=== PATIENT | female | born 1975 | race Caucasian/White ===

== ENCOUNTER 2022-11-15 10:34 | Outpatient (CLI) | payer OTHER, SELFPAY | END 2022-11-15 10:35 | disposition home or self-care (01) | PROVIDERS: Visit Provider Obstetrics & Gynecology | DX: N39.0 Urinary tract infection, site not specified (principal); B37.31 Acute candidiasis of vulva and vagina | CPT/HCPCS: 87086; 87186 ==

== ENCOUNTER 2022-11-20 15:46 | Outpatient (CLI) | payer OTHER, SELFPAY | END 2022-11-20 15:47 | disposition home or self-care (01) | LOC: NFLDREF 11-29 08:33 | PROVIDERS: PCP Obstetrics & Gynecology; Visit Provider Obstetrics & Gynecology | DX: N39.0 Urinary tract infection, site not specified (principal) | CPT/HCPCS: 87086 ==

== ENCOUNTER 2023-06-13 13:33 | Outpatient (CLI) | payer OTHER, SELFPAY | END 2023-06-13 13:34 | disposition home or self-care (01) | PROVIDERS: Visit Provider Obstetrics & Gynecology | DX: Z13.1 Encounter for screening for diabetes mellitus (principal); Z13.220 Encounter for screening for lipoid disorders; R53.83 Other fatigue | CPT/HCPCS: 80061; 84439; 84443 ==

== ENCOUNTER 2023-09-01 08:58 | Outpatient (CLI) | payer OTHER, SELFPAY | END 2023-09-01 08:59 | disposition home or self-care (01) | LOC: NFLDREF 09-03 15:32 | PROVIDERS: Visit Provider Obstetrics & Gynecology | DX: D64.9 Anemia, unspecified (principal) | CPT/HCPCS: 82607; 82728; 82746; 84443 ==

== ENCOUNTER 2023-09-09 15:30 | Outpatient (CLI) | payer OTHER, SELFPAY ==
--- NOTE | 2023-09-09 15:40 | CRLHL7_ITS ---
For Patients: As a result of the Century Cures Act, medical imaging exams and procedure reports are released immediately into your electronic medical record. You may view this report before your referring provider. If you have questions, please contact your health care provider. BILATERAL DIGITAL SCREENING MAMMOGRAM WITH COMPUTER-AIDED DETECTION AND TOMOSYNTHESIS CLINICAL HISTORY: Routine screening exam. COMPARISON: 10/13/2017. TECHNIQUE: Digital mammogram in CC and MLO projections including computer-aided detection (CAD). Tomosynthesis was used in this interpretation. BREAST COMPOSITION: There are areas of scattered fibroglandular density. FINDINGS: RIGHT Breast: No suspicious findings. LEFT Breast: Focal asymmetric density upper outer quadrant 5 cm from the nipple. IMPRESSION: LEFT breast asymmetry/mass. RECOMMENDATIONS: Additional mammographic views of the LEFT breast including 3D spot compression CC/MLO. LEFT breast ultrasound may also be required. BI-RADS Category 0: Incomplete: Need Additional Imaging Evaluation and/or Prior Mammograms for Comparison The [facility] will contact the patient for follow-up. A lay language report of this examination will be provided to the patient. Dictated by Tim Lee MD @ 09/12/2023 12:21:33 PM [email or web address]/Dictated by: Tim Lee MD @ 09/12/2023 12:21:00 PM (Electronically Signed)
== END 2023-09-09 15:31 | disposition home or self-care (01) ==
LOC: MAMMO 15:31
PROVIDERS: Visit Provider Obstetrics & Gynecology
DX: Z12.31 Encounter for screening mammogram for malignant neoplasm of breast (principal); N63.20 Unspecified lump in the left breast, unspecified quadrant
CPT/HCPCS: 77063; 77067

== ENCOUNTER 2023-09-24 08:05 | Outpatient (CLI) | payer OTHER, SELFPAY ==
--- NOTE | 2023-09-24 08:45 | CRLHL7_ITS ---
For Patients: As a result of the Cures Act, medical imaging exams and procedure reports are released immediately into your electronic medical record. You may view this report before your referring provider. If you have questions, please contact your health care provider. DIGITAL DIAGNOSTIC LEFT MAMMOGRAM USING TOMOSYNTHESIS AND COMPUTER-AIDED DETECTION LEFT BREAST ULTRASOUND CLINICAL HISTORY: LEFT breast mass/asymmetry. COMPARISON: 09/09/2023. TECHNIQUE: Digital LEFT mammogram in two projections with computer-aided detection. Tomosynthesis was used in this interpretation. Real-time ultrasound imaging of LEFT breast with imaging documentation. BREAST COMPOSITION: There are areas of scattered fibroglandular density. FINDINGS: 3D spot compression CC/MLO LEFT breast mammogram images submitted. Decreased conspicuity of focal asymmetric density LEFT breast. No architectural distortion or suspicious calcifications. Targeted LEFT breast ultrasound performed 1 o`clock 5 cm from the nipple. Normal fibroglandular tissue noted. No cyst or mass. IMPRESSION: Normal fibroglandular tissue. No evidence of malignancy. RECOMMENDATIONS: Annual bilateral screening mammography. Results and recommendations discussed with the patient. BI-RADS Category 2: Benign A lay language report of this examination will be provided to the patient. Dictated by Tim Lee MD @ 09/24/2023 10:31:16 AM jj/Dictated by: Tim Lee MD @ 09/24/2023 10:31:00 AM (Electronically Signed)
--- NOTE | 2023-09-24 09:15 | CRLHL7_ITS ---
For Patients: As a result of the Cures Act, medical imaging exams and procedure reports are released immediately into your electronic medical record. You may view this report before your referring provider. If you have questions, please contact your health care provider. PLEASE SEE DIGITAL DIAGNOSTIC LEFT MAMMOGRAM PERFORMED SAME DAY CRL:[email or web address] [email or web address]/Dictated by: Tim Lee MD @ 09/24/2023 10:31:00 AM (Electronically Signed)
== END 2023-09-24 08:06 | disposition home or self-care (01) ==
LOC: MAMMO 08:06
PROVIDERS: Visit Provider Obstetrics & Gynecology
DX: N63.20 Unspecified lump in the left breast, unspecified quadrant (principal); R92.8 Other abnormal and inconclusive findings on diagnostic imaging of breast
CPT/HCPCS: 76642; 77065; G0279

== ENCOUNTER 2023-11-05 08:00 | Outpatient (RCR) | payer OTHER, SELFPAY ==
--- NOTE | 2023-10-24 11:24 | PC.NURSE ---
Dx: Iron Deficiency Anemia
--- NOTE | 2023-10-24 12:40 | URNOTE ---
Prior auth is not required for Milana per insurance website. Conf #[id number]
[2023-10-27 08:31] VITALS: BP 140/80; PULSE 78; RESP 18; TEMP 36.6; O2SAT 100
[2023-10-27] MEDS: 0.9 % SODIUM CHLORIDE 250 ml IV (08:50)
[2023-10-27] MEDS: SODIUM CHLORIDE 0.9 % (FLUSH) 10 ML SYRINGE IVF (08:50)
[2023-10-27] MEDS: IRON SUCROSE COMPLEX 200 MG in 0.9 % SODIUM CHLORIDE 100 ml 440 MG IVPB (08:57)
[2023-10-27 09:15] VITALS: BP 124/79; PULSE 80; RESP 16; TEMP 36.7; O2SAT 96
[2023-10-27 09:48] VITALS: BP 131/83; PULSE 77; RESP 16; TEMP 36.6; O2SAT 97
[2023-10-29 07:57] VITALS: BP 137/79; PULSE 86; RESP 16; TEMP 36
[2023-10-29] MEDS: SODIUM CHLORIDE 0.9 % (FLUSH) 10 ML SYRINGE IVF (08:21)
[2023-10-29] MEDS: IRON SUCROSE COMPLEX 200 MG in 0.9 % SODIUM CHLORIDE 100 ml 220 MG IVPB (08:21)
[2023-10-29] MEDS: 0.9 % SODIUM CHLORIDE 250 ml IV (08:21)
[2023-10-29 08:57] VITALS: BP 101/68; PULSE 74; RESP 16; TEMP 36.5; O2SAT 95
[2023-10-29 09:28] VITALS: BP 108/66; PULSE 77; RESP 16; TEMP 36.5; O2SAT 97
[2023-10-31 08:00] VITALS: BP 114/78; PULSE 81; RESP 16; TEMP 36.1; O2SAT 100
[2023-10-31] MEDS: IRON SUCROSE COMPLEX 200 MG in 0.9 % SODIUM CHLORIDE 100 ml 220 MG IVPB (08:33)
[2023-10-31] MEDS: 0.9 % SODIUM CHLORIDE 250 ml IV (08:33)
[2023-10-31 09:05] VITALS: BP 110/75; PULSE 67; RESP 16; TEMP 36.3; O2SAT 95
[2023-10-31 09:38] VITALS: BP 100/69; PULSE 69; RESP 16; TEMP 36.2; O2SAT 96
[2023-11-03] MEDS: IRON SUCROSE COMPLEX 200 MG in 0.9 % SODIUM CHLORIDE 100 ml 440 MG IVPB (09:53)
[2023-11-03] MEDS: 0.9 % SODIUM CHLORIDE 250 ml IV (09:53)
[2023-11-03 10:32] VITALS: BP 115/77; PULSE 85; RESP 14; TEMP 36.8; O2SAT 97
[2023-11-03 11:04] VITALS: BP 127/74; PULSE 81; RESP 12; TEMP 36.2; O2SAT 97
[2023-11-05 07:52] VITALS: BP 136/81; PULSE 99; RESP 16; TEMP 36.1; O2SAT 94
[2023-11-05] MEDS: IRON SUCROSE COMPLEX 200 MG in 0.9 % SODIUM CHLORIDE 100 ml 420 MG IVPB (08:11)
[2023-11-05] MEDS: 0.9 % SODIUM CHLORIDE 250 ml IV (08:12)
[2023-11-05] MEDS: SODIUM CHLORIDE 0.9 % (FLUSH) 10 ML SYRINGE IVF (08:12)
[2023-11-05 09:15] VITALS: BP 108/70; PULSE 91; RESP 16; TEMP 36.5; O2SAT 95
== END 2024-04-24 23:59 | disposition home or self-care (01) ==
LOC: CCIC 08:00
PROVIDERS: Visit Provider Clinical Nurse Specialist
DX: D50.9 Iron deficiency anemia, unspecified (principal)
CPT/HCPCS: 96365; 96374; J1756; J7050

== ENCOUNTER 2023-12-30 14:19 | Outpatient (CLI) | payer OTHER, SELFPAY | END 2023-12-30 14:20 | disposition home or self-care (01) | LOC: NFLDREF 01-01 09:42 | PROVIDERS: Visit Provider Obstetrics & Gynecology | DX: D64.9 Anemia, unspecified (principal); R19.8 Other specified symptoms and signs involving the digestive system and abdomen | CPT/HCPCS: 82533; 82728 ==

== ENCOUNTER 2024-07-05 09:23 | Outpatient (CLI) | payer OTHER, SELFPAY | END 2024-07-05 09:24 | disposition home or self-care (01) | PROVIDERS: Visit Provider Obstetrics & Gynecology | DX: I10 Essential (primary) hypertension (principal); R53.83 Other fatigue; D64.9 Anemia, unspecified; M25.50 Pain in unspecified joint | CPT/HCPCS: 82306; 82728; 84443 ==

== ENCOUNTER 2024-11-02 08:30 | Day surgery (SDC) | payer OTHER, SELFPAY ==
[2024-11-02] VITALS (7 sets, daily range): BP systolic 106–134; BP diastolic 60–85; PULSE 66–74; RESP 16; TEMP 36.7; O2SAT 94–100; BMI 27.1
[2024-11-02] MEDS: LACTATED RINGERS 500 ML 500 ML 100 ML IV ×2 (09:15→11:00)
[2024-11-02] MEDS: SODIUM CHLORIDE 0.9 % (FLUSH) 10 ML SYRINGE IVF (09:16)
[2024-11-02 09:17] LABS: Ur HCG Qualitative* Negative (Negative)
[2024-11-02] MEDS: BUPIVACAINE 0.25% 30 ML INJECTION (11:12)
[2024-11-02] MEDS: LIDOCAINE 1% MDV 20 ML INJECTION (11:12)
--- NOTE | 2024-11-02 12:21 | P.GYNPRC_ITS ---
Procedure Note Date of procedure: 11/02/24 Will [facility] bill your pro fee for this procedure?: Yes Pre-op diagnosis: 1. Menorrhagia. 2. History of Essure tubal sterilization. Post-op diagnosis: 1. Menorrhagia. 2. History of Essure tubal sterilization. Procedure: 1. Hysteroscopy. 2. D&C. 3. Genesys Hydrothermal Endometrial Ablation. Anesthesia: MAC and local (paracervical block) Complications: None. Surgeon: Charlotte Mosley MD. Estimated blood loss (mL): 5 Pathology: specimen obtained, sent to pathology (endometrial curettings) Condition: stable Disposition: same day Findings: Uterine sound length 8 cm. Cervix length 4 cm. Normal-appearing endometrium. Closed tubal ostia bilaterally. Essure stents nonvisualized. Procedure Description: After obtaining informed consent, the patient was taken to the operating room where she received monitored anesthesia care. She was prepared and draped in the normal sterile fashion, in the dorsal lithotomy position. An open-sided bivalve speculum was introduced into the vagina and the cervix visualized. The anterior lip of the cervix was grasped with a single-tooth tenaculum for traction. A paracervical block was then administered using a total of 20 mL of a 50/50 mixture of 0.25% Marcaine and 1% lidocaine plain. The uterus was gently sounded. Sound length was 8 cm. The cervix was gently dilated to a #7 Hegar dilator. A 5mm hysteroscope was then gently advanced through the cervical os into the uterine cavity using sterile normal saline as distending medium. Findings were noted above. Pictures were taken for documentation purposes. The endometrial cavity was gently sharply curetted and a sample obtained for pathology. Preparations were begun for Kimber endometrial ablation. At this point in the procedure, the [employer] human resources hr representative informed me that the company had issued a statement stating that prior Essure tubal sterilization was a contraindication to radiofrequency ablation, with no additional data available regarding nonvisualized stents, and that hydrothermal ablation would be potentially a safer alternative. Preparations were made instead for Genesys hydrothermal ablation. Fluid deficit was 55 mL for the initial hysteroscopy. A 4 mm hysteroscope and HTA sheath were then advanced under direct visualization through the cervix into the mid uterine cavity. Sterile normal saline was used as distending medium. The uterine cavity was again inspected. The HCA sheath could not be tightly fixed to the tenaculum, so I held traction on the tenaculum and scope for the entire procedure. The device was activated and no leaks were detected. The circulating fluid was heated to 90? centigrade and the 10 minute treatment cycle initiated. Following the treatment cycle, there was a 90 second cool down cycle. A good ablation was observed visually as the tissue was fully ablated. Pictures were taken for documentation purposes. The hysteroscope and HTA sheath were removed. The tenaculum was removed. All instruments were then removed. There was no additional fluid deficit. The patient tolerated the procedure well. Sponge, lap, needle, and instrument counts reported as correct x2. The patient was taken to the recovery room awake in a stable condition. She received 30 mg IV Toradol at the conclusion of the procedure.
--- NOTE | 2024-11-02 13:18 | P.ANES_ITS ---
Anesthesia Charges Start Date/Time Anesthesia Start Date: 11/02/24 Anesthesia Start Time: 10:48 Stop Date/Time Anesthesia Stop Date: 11/02/24 Anesthesia Stop Time: 12:24 Coding CPT Codes CPT Codes: ANESTH HYSTEROSCOPE/GRAPH - 26813 ([id number]) P2 - PATIENT W/MILD SYST DISEASE, QK - SENIOR TECHNICAL PROGRAM MANAGER 2-4 CNCRNT ANES PROC, QX - TERRAZZO LABORER SVC W/ MD MED DIRECTION
--- NOTE | 2024-11-02 13:18 | W.ANESCHARGE ---
Anesthesia Charges Start Date/Time Anesthesia Start Date: 11/02/24 Anesthesia Start Time: 10:48 Stop Date/Time Anesthesia Stop Date: 11/02/24 Anesthesia Stop Time: 12:24 Coding CPT Codes CPT Codes: ANESTH HYSTEROSCOPE/GRAPH - 91144 ([id number]) P2 - PATIENT W/MILD SYST DISEASE, QK - EXPANSION JOINT FINISHER 2-4 CNCRNT ANES PROC, QX - ASSEMBLER FILTERS SVC W/ MD MED DIRECTION
[2024-11-02] MEDS: ACETAMINOPHEN 500 MG TABLET 1000 MG PO (13:33)
--- NOTE | 2024-11-02 13:59 | P.ANES_ITS ---
Anesthesia Charges Start Date/Time Anesthesia Start Date: 11/02/24 Anesthesia Start Time: 10:48 Stop Date/Time Anesthesia Stop Date: 11/02/24 Anesthesia Stop Time: 12:24 Coding CPT Codes CPT Codes: ANESTH HYSTEROSCOPE/GRAPH - 35249 ([id number]) P2 - PATIENT W/MILD SYST DISEASE, QK - FLOOR FRAMER 2-4 CNCRNT ANES PROC, QX - MANAGEMENT ACCOUNTANT SVC W/ MD MED DIRECTION
--- NOTE | 2024-11-02 13:59 | W.ANESCHARGE ---
Anesthesia Charges Start Date/Time Anesthesia Start Date: 11/02/24 Anesthesia Start Time: 10:48 Stop Date/Time Anesthesia Stop Date: 11/02/24 Anesthesia Stop Time: 12:24 Coding CPT Codes CPT Codes: ANESTH HYSTEROSCOPE/GRAPH - 49666 ([id number]) P2 - PATIENT W/MILD SYST DISEASE, QK - VAULT WORKER 2-4 CNCRNT ANES PROC, QX - PIER HAND SVC W/ MD MED DIRECTION
== END 2024-11-02 14:08 | disposition home or self-care (01) ==
LOC: OR 08:33
PROVIDERS: PCP Physician Assistant; Visit Provider Obstetrics & Gynecology
PROC: 0U5B8ZZ Destruction of Endometrium, Via Natural or Artificial Opening Endoscopic (ICD-10-PCS; CPT 58558; principal; 2024-11-02 10:00)
DX: N92.0 Excessive and frequent menstruation with regular cycle (principal)
CPT/HCPCS: 58563; 00952; 81025; 88305; J2003; A9270; C1782; J0665; J1100; J1885; J2250; J2371; J2405; J2704; J3010; J7120

== ENCOUNTER 2024-11-16 12:59 | Outpatient (CLI) | payer OTHER, SELFPAY ==
--- NOTE | 2024-11-16 13:20 | CRLHL7_ITS ---
For Patients: As a result of the Century Cures Act, medical imaging exams and procedure reports are released immediately into your electronic medical record. You may view this report before your referring provider. If you have questions, please contact your health care provider. INDICATION: BILATERAL SCREENING MAMMOGRAM, ASYMPTOMATIC 48 Y/O FEMALE COMPARISON: 09/24/2023, 09/09/2023, 10/13/2017 TECHNIQUE: Digital mammogram in CC and MLO projections including computer-aided detection (CAD) and tomosynthesis. BREAST COMPOSITION: There are scattered areas of fibroglandular density. FINDINGS: No suspicious findings. ASSESSMENT: BI-RADS 1 Negative RECOMMENDATION: Annual screening mammogram. A lay language report of this examination will be provided to the patient. Dictated by: Tim Lee MD @ 11/17/2024 10:58:13 (Electronically Signed)
== END 2024-11-16 13:00 | disposition home or self-care (01) ==
LOC: MAMMO 13:00
PROVIDERS: PCP Physician Assistant; Visit Provider Obstetrics & Gynecology
DX: Z12.31 Encounter for screening mammogram for malignant neoplasm of breast (principal)
CPT/HCPCS: 77063; 77067